=== PATIENT | male | born 1960 | race Caucasian/White ===

== ENCOUNTER → 2022-05-01 14:54 | Outpatient (POV) | payer SELFPAY ==
[2022-05-01 15:12] VITALS: BP 159/97; PULSE 76; RESP 18; O2SAT 97; BMI 32.7
--- NOTE | 2022-05-01 16:03 | EXP.PAIN.OV ---
HPI Data of Consult Patient: new to practice Consult date: 05/01/22 Requesting Physician: CLAUDIA Olvera Consult Narrative Reason for consult: Low back pain History of present illness: Mr. Benito is a 61 year old male who presents today as a new patient. Patient is referred by Dr. Hicks. Thank you for the referral. Patient presents today with worsening low back pain that radiates to his right lower extremity. This started about 2 months ago. Denies any recent falls or traumas. Denies any loss of bowel or bladder functions. He does work at a farm and in construction. He also had a discectomy about a year ago that was done by Dr. Hicks. He describes the pain as constant, achy, dull. He does report some burning sensation going down his right leg all the way to his toes. He states that this pain is similar to his pain from before he had a discectomy. He did see Dr. Hicks recently who is recommending discectomy at L4-L5. Patient states that he is scheduled for this in the middle of May. In the meantime, he wants to know if there is something else he can do for his low back pain. He has tried and failed conservative therapies in the past such as oral medication, physical therapy, and home exercises for greater than 6 weeks. He rates his pain as 8 out of 10. CC: CLAUDIA Olvera [facility] Disclaimer: The information contained in this section may have been updated after the patient was seen, as this information can be updated by other users. Medical History (Updated 05/01/22 @ 16:07 by CLAUDIA Olvera) Cancer DDD (degenerative disc disease), lumbar Surgical History (Updated 05/01/22 @ 15:19 by Rachelle Pereyra RN) Previous back surgery Social History (Updated 05/01/22 @ 15:19 by Rachelle Pereyra RN) Smoking Status: Never smoker alcohol intake: never current occupational status: retired Travel in the last 8 weeks: None Review of Systems Review of Systems Review of systems (narrative): Review of Systems: General: No recent weight changes, no fever, no sleep disturbances Respiratory: No cough, no shortness of air, no recurring pulmonary infections Cardiovascular/peripheral vascular: No chest pain, no palpitations, no edema, no shortness of breath Gastrointestinal: No new onset incontinence, normal bowel movements reported Genitourinary: No new onset incontinence Musculoskeletal: Low back pain, right hip pain Psychiatric: [Normal mood/affect] Neurological: [Denies weakness in extremities], [denies balance issues] Meds Home Medications and Allergies Home Medications Medication Instructions Recorded Confirmed Type No Known Home Medications 05/01/22 05/01/22 History New Prescriptions to Start Prescriptions: Allergies Allergy/AdvReac Type Severity Reaction Status Date / Time NO KNOWN ALLERGIES Allergy Uncoded 05/01/17 15:36 Objective Vital signs: Pulse Resp BP Pulse Ox 76 18 159/97 H 97 05/01/22 15:12 05/01/22 15:12 05/01/22 15:12 05/01/22 15:12 Narrative: Physical Exam: General: Alert and oriented x3, no acute distress, pleasant and cooperative Lungs: Respirations even and unlabored, symmetrical chest expansion Eyes: PERRL Musculoskeletal: Flexion and extension of lumbar [spine] somewhat guarded secondary to pain, [antalgic gait noted]; right SI is positive for HAYLEE, Imelda's, [place]'s, Gaenslen's, compression, and distraction. Neurological: Speech clear, no gross sensory deficit Additional findings Additional findings: MRI lumbar 03/28/2022: Findings: The L5-S1 level shows a central disc herniation indenting the anterior thecal sac. Moderate bilateral L5-S1 foraminal stenosis. The L4-L5 level shows moderate central spinal stenosis secondary to right paracentral disc herniation, ligamentous hypertrophy and facet arthropathy. Moderate bilateral L4-L5 foraminal stenosis The L3-L4 level shows moderate central canal spinal stenosis and moderate bilateral L
== END | disposition home or self-care (01) ==
PROVIDERS: Visit Provider Student in an Organized Health Care Education/Training Program
DX: M51.16 Intervertebral disc disorders with radiculopathy, lumbar region (principal); M47.26 Other spondylosis with radiculopathy, lumbar region; M48.062 Spinal stenosis, lumbar region with neurogenic claudication; M46.1 Sacroiliitis, not elsewhere classified; G89.29 Other chronic pain
CPT/HCPCS: 99212; G0463